=== PATIENT | male | born 1995 | race Hispanic/Latino ===

== ENCOUNTER 2018-04-15 01:30 | Emergency (ER) | payer BC ==
[2018-04-15] MEDS ORDERED: Morphine 4 MG/ML VIAL ONE (01:49)
[2018-04-15] MEDS ORDERED: Morphine 4 MG/ML VIAL IVP STA (02:02)
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
[2018-04-15 04:29] VITALS: BP 118/69; PULSE 75; RESP 17; TEMP 98.3; O2SAT 99
--- NOTE | 2018-04-15 11:33 | RAD ---
Date of service: 04/15/2018 PROCEDURE: Right Knee Radiographs. HISTORY: knee pain s/p injury COMPARISON: None. FINDINGS: BONES: No acute fracture. JOINTS: Unremarkable. JOINT EFFUSION: None. OTHER FINDINGS: None. IMPRESSION: No demonstrated fracture or dislocation.
== END 2018-04-15 04:07 | disposition home or self-care (01) ==
LOC: H.ER 01:30
DX: S89.91XA Unspecified injury of right lower leg, initial encounter (principal); W19.XXXA Unspecified fall, initial encounter
CPT/HCPCS: 73562; 96374; 99285; J2270